=== PATIENT | female | born 1960 | race Caucasian/White ===

== ENCOUNTER 2021-05-30 12:07 | Emergency (ER) | payer OTHER ==
--- NOTE | 2021-05-30 13:31 | ED ---
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 Patient states she has lower back pain right buttocks pain and right ankle pain. Patient states ankle is swollen up and bruised on the medical malleolus and the foot. Patient states she is able to ablate but it hurts. Patient denies hitting her head or neck. Patient denies any chest or upper back pain. Patient denies any abdominal pain. Patient is any other extremity pain. - Related Data Allergies Allergy/AdvReac Type Severity Reaction Status Date / Time codeine AdvReac Rash/Hives Verified 05/30/21 12:37 Penicillins AdvReac Rash/Hives Verified 05/30/21 12:37 Review of Systems ROS Statement: Those systems with pertinent positive or pertinent negative responses have been documented in the HPI. ROS Other: All systems not noted in ROS Statement are negative. Past Medical History Past Medical History: No Reported History History of Any Multi-Drug Resistant Organisms: None Reported Past Surgical History: No Surgical Hx Reported Past Psychological History: No Psychological Hx Reported Smoking Status: Current every day smoker Past Alcohol Use History: Occasional Past Drug Use History: None Reported General Exam - General Exam Comments Initial Comments: GENERAL Patient is well-developed and well-nourished. Patient is in mild distress. EYES Patient's pupils are equal and round. Extraocular motion is intact SKIN Unremarkable NEURO The patient is alert and oriented 3 PYSCH Patient has normal interpersonal interactions. MUSCULOSKELETAL Patient has tenderness along the lateral malleolus as well as the proximal foot on the fourth and fifth metatarsal patient has some very minimal medial malleolus tenderness. Patient has tenderness of the LS-spine and some buttocks tenderness on the right. Limitations: no limitations Course Vital Signs 05/30/21 12:37 Temperature 98.2 F Pulse Rate 76 Respiratory 16 Rate Blood Pressure 182/97 O2 Sat by Pulse 98 Oximetry Medical Decision Making - Medical Decision Making Pelvis shows no acute abnormality. LS spine shows no acute abnormality. Foot x-ray shows no acute abnormality. X-ray of the ankle shows possible avulsion fracture of the distal medial tibia. I splinted the patient and she will follow-up with orthopedics Disposition Clinical Impression: Fall, Tibia fracture Disposition: HOME SELF-CARE Condition: Good Instructions (If sedation given, give patient instructions): Fall Prevention for Older Adults (ED), Leg Fracture (ED) Is patient prescribed a controlled substance at d/c from ED?: No Referrals: Miquel Alexander DO [Doctor of Osteopathic Medicine] - 1-2 days Time of Disposition: 14:40
--- NOTE | 2021-05-30 14:01 | XR ---
EXAM TYPE: LUMBAR SPINE X RAY SERIES COMPARISON: NONE HISTORY: Pain TECHNIQUE: 4 views are submitted. FINDINGS: Alignment is anatomic. The pedicles are intact. The transverse processes are intact. There is mini mal anterolisthesis L4 on L5 likely degenerative. Curvature of the spine with multilevel hypertrophic and degenerative change. Diffuse osteopenia. Facet arthropathy lower lumbar spine. IMPRESSION: 1. Multilevel degenerative change and facet arthropathy with slight scoliotic curvature.
--- NOTE | 2021-05-30 14:02 | XR ---
EXAMINATION TYPE: XR pelvis AP view DATE OF EXAM: 05/30/2021 COMPARISON: NONE HISTORY: Pain The osseous structures are intact and the joint spaces are preserved. No acute fracture is seen. Vi sualized bowel gas pattern is nonspecific. Degenerative change lower lumbar spine. IMPRESSION: 1. No acute fracture.
--- NOTE | 2021-05-30 14:04 | XR ---
EXAMINATION TYPE: XR ankle complete RT DATE OF EXAM: 05/30/2021 COMPARISON: NONE HISTORY: Pain FINDINGS: Three views of the ankle demonstrate the ankle mortise to be intact and symmetric. The joint spaces are preserved. The osseous structures are intact. Calcaneal spur noted. Small bony density adjacent to the medial malleolus. IMPRESSION: 1. Small bony density adjacent to the medial malleolus. May be chronic correlate with point tendernes s to exclude acute avulsion fracture.
--- NOTE | 2021-05-30 14:06 | XR ---
EXAMINATION TYPE: XR foot complete RT DATE OF EXAM: 05/30/2021 COMPARISON: NONE HISTORY: Pain TECHNIQUE: Three views are submitted. FINDINGS: The osseous structures are intact. There is no acute fracture or dislocation. Arthropathy of the f irst MTP joint. Calcaneal spur noted. IMPRESSION: 1. No acute fracture or dislocation. If symptoms persist, follow-up exam in 7 to 10 days could be ob tained.
[2021-05-30] MEDS ORDERED: BACITRACIN OINT 1 EACH PACKET TOPICAL ONE (14:31)
[2021-05-30 15:06] VITALS: BP 150/98; PULSE 77; RESP 18; TEMP 97.7
== END 2021-05-30 15:03 | disposition home or self-care (01) ==
LOC: EC 12:07
DX: S82.51XA Displaced fracture of medial malleolus of right tibia, initial encounter for closed fracture (principal); M54.5 Low back pain; F17.200 Nicotine dependence, unspecified, uncomplicated; Z88.0 Allergy status to penicillin; Z88.5 Allergy status to narcotic agent; W13.8XXA Fall from, out of or through other building or structure, initial encounter
CPT/HCPCS: 29515; 72110; 72170; 99284